=== PATIENT | male | born 1995 | race Caucasian/White ===

== ENCOUNTER 2019-01-08 21:59 | Emergency (ER) | payer OTHER ==
--- NOTE | 2019-01-08 22:13 | ER Document Report ---
ED General - General Chief Complaint: Possible Overdose Stated Complaint: POSSIBLE OVERDOSE Time Seen by Provider: 01/08/19 22:12 TRAVEL OUTSIDE OF THE [place] IN LAST 30 DAYS: No - HPI Notes: Patient is a 23-year-old male who states he has a past medical history significant for bipolar disorder and a "bone marrow cancer" that he was receiving chemotherapy for at [facility]. Patient states that he was "just trying to relax tonight" and took 4 mg of Xanax. Apparently someone in the household became concerned and called EMS. - Related Data Allergies/Adverse Reactions: No Known Allergies Allergy (Verified 08/03/14 14:43) Past Medical History - Social History Smoking Status: Unknown if Ever Smoked Family History: Reviewed & Not Pertinent, CAD, DM, Hyperlipidemia, Hypertension Musculoskeletal Medical History: Reports Hx Musculoskeletal Trauma - left radial and ulnar fracture Psychiatric Medical History: Reports: Hx Anxiety, Hx Attention Deficit Hyperactivity Disorder, Hx Bipolar Disorder Traumatic Medical History: Reports: Hx Fractures - left radial/ulnar with pins Past Surgical History: Reports: Hx Orthopedic Surgery - L arm - Immunizations Immunizations up to date: Yes Hx Diphtheria, Pertussis, Tetanus Vaccination: Yes Physical Exam - Vital signs Vitals: Resp 26 H 01/08/19 22:10 Course - Re-evaluation Re-evalutation: 01/09/19 05:03 Patient currently sleeping. In no acute distress. - Vital Signs Vital signs: Temp Pulse Resp BP Pulse Ox 98.2 F 21 H 100/50 L 96 01/09/19 00:14 01/09/19 03:41 01/09/19 03:41 01/09/19 00:43 Vital signs reviewed by this MD. - Laboratory Result Diagrams: 01/08/19 22:50 01/08/19 22:50 Laboratory results interpreted by me: 01/08/19 01/08/19 22:03 22:50 POC Glucose 119 H Salicylates < 1.0 L Acetaminophen < 10 L 01/09/19 05:03 Laboratory results reviewed by this MD. - EKG Interpretation by Me Additional EKG results interpreted by me: 01/09/19 05:04 EKG performed on 01/08/2019 at 2256 hrs. was interpreted by this MD. Findings: Normal sinus rhythm, rate 74, normal axis, P waves proceed QRS complexes, QRS complexes appear narrow, no acute ST elevation or depression is seen. Impression normal sinus rhythm with no acute findings. Discharge - Discharge Clinical Impression: Intentional overdose of drug in tablet form Condition: Fair Disposition: PSYCH HOSP/UNIT
[2019-01-08 23:03] LABS: ABSOLUTE BASOPHILS # (AUTO) 0.1 10^3/uL (0.0-0.2); ABSOLUTE EOSINOPHILS # (AUTO) 0.1 10^3/uL (0.0-0.6); ABSOLUTE LYMPHOCYTES (AUTO) 2.4 10^3/uL (0.5-4.7); ABSOLUTE MONOCYTES (AUTO) 0.5 10^3/uL (0.1-1.4); ABSOLUTE NEUT (AUTO) 4.3 10^3/uL (1.7-8.2); BASOPHILS % (AUTO) 0.9 % (0-2); EOSINOPHILS % (AUTO) 1.9 % (0-6); HEMOGLOBIN 15.8 g/dL (13.5-17.0); LYMPHOCYTES % (AUTO) 32.8 % (13-45); MEAN CORPUSCULAR HGB CONC 35.1 g/dL (32.0-36.0); MEAN CORPUSCULAR VOLUME 94 fl (80-97); PLATELET COUNT 297 10^3/uL (150-450); RED BLOOD COUNT 4.77 10^6/uL (4.35-5.55); RED CELL DISTRIBUTION WIDTH 11.9 % (11.5-14.0); SEGMENTED NEUTROPHILS % (AUTO) 57.4 % (42-78); TOTAL CELLS COUNTED % (AUTO) 100 %; WHITE BLOOD COUNT 7.4 10^3/uL (4.0-10.5)
[2019-01-08 23:10] LABS: APPEARANCE,URINE CLEAR; BILIRUBIN,URINE NEGATIVE (NEGATIVE); COLOR,URINE STRAW; GLUCOSE, URINE NEGATIVE (NEGATIVE); KETONES,URINE NEGATIVE (NEGATIVE); LEUKOCYTE ESTERASE,URINE NEGATIVE (NEGATIVE); NITRITE,URINE NEGATIVE (NEGATIVE); PROTEIN,URINE NEGATIVE (NEGATIVE); URINE SPECIFIC GRAVITY 1.005; UROBILINOGEN,URINE NEGATIVE mg/dL (<2.0)
--- NOTE | 2019-01-08 23:10 | EKG REPORT ---
SEVERITY:- NORMAL ECG - SINUS RHYTHM : Confirmed by: Rj Martinez MD 08-Jan-2019 23:08:20
[2019-01-08 23:20] LABS: ACETAMINOPHEN < 10 ug/mL (10-30); ALBUMIN 4.2 g/dL (3.5-5.0); ALCOHOL 95 mg/dL (NONE DETECTED); ALKALINE PHOSPHATASE 51 U/L (38-126); ANION GAP 9 (5-19); ASPARTATE AMINO TRANSFERASE 23 U/L (17-59); BILIRUBIN,DIRECT 0.1 mg/dL (0.0-0.4); BILIRUBIN,TOTAL 0.5 mg/dL (0.2-1.3); BLOOD UREA NITROGEN 10 mg/dL (7-20); CALCIUM 9.9 mg/dL (8.4-10.2); CARBON DIOXIDE 28 mmol/L (22-30); CHLORIDE 104 mmol/L (98-107); GLUCOSE 81 mg/dL (75-110); POTASSIUM 3.9 mmol/L (3.6-5.0); SALICYLATE < 1.0 mg/dL (2.0-20.0); TOTAL PROTEIN 6.7 g/dL (6.3-8.2)
[2019-01-08 23:27] LABS: URINE AMPHETAMINES SCREEN NEGATIVE; URINE BARBITURATES SCREEN NEGATIVE; URINE COCAINE SCREEN NEGATIVE; URINE METHADONE SCREEN NEGATIVE; URINE PHENCYCLIDINE SCREEN NEGATIVE
[2019-01-08 23:31] LABS: URINE BENZODIAZEPINES SCREEN UNCONFIRMED POSITIVE; URINE MARIJUANA (THC) SCREEN UNCONFIRMED POSITIVE
[2019-01-08] MEDS ORDERED: NORMAL SALINE 1000 ML 1,000 ML IV ONE (23:45)
--- NOTE | 2019-01-09 00:13 | RADIOLOGY REPORT (SQ) ---
EXAM DESCRIPTION: CT head without contrast CLINICAL HISTORY: 23 years Male, s/p fall, unwitnessed COMPARISON: None. TECHNIQUE: Axial images of the head were performed without the use of intravenous contrast, with sagittal and coronal reformatted images. This exam was performed according to our departmental dose-optimization program which includes use of Automated Exposure Control, adjustment of the mA and/or kV according to patient size and/or use of iterative reconstruction technique. FINDINGS: No skull fracture. No intracranial bleed. No evidence of acute infarct. No evidence of mass or hydrocephalus. IMPRESSION: No skull fracture. No intracranial bleed.
[2019-01-09] MEDS ORDERED: NORMAL SALINE 1000 ML 1,000 ML IV ONE ×2 (00:14→00:48)
--- NOTE | 2019-01-09 00:17 | RADIOLOGY REPORT (SQ) ---
EXAM DESCRIPTION: CT cervical spine without contrast CLINICAL HISTORY: 23 years Male, s/p fall, unwitnessed COMPARISON: None. TECHNIQUE: Axial images of the cervical spine were performed, without the use of intravenous contrast, with sagittal and coronal reformatted images This exam was performed according to our departmental dose-optimization program which includes use of Automated Exposure Control, adjustment of the mA and/or kV according to patient size and/or use of iterative reconstruction technique. FINDINGS: No fracture or dislocation. No evidence of prevertebral swelling. No evidence of spinal stenosis. IMPRESSION: No fracture or dislocation.
[2019-01-09 10:41] VITALS: BP 101/62
--- NOTE | 2019-01-09 11:07 | PSYCHOLOGICAL NOTE ---
Psych Note - Psych Note Date seen by psych provider: 01/09/19 Time seen by psych provider: 09:00 Psych Note: Reason for consult: Altered mental status Patient is a 23-year-old male who states he has a past medical history significant for bipolar disorder and a "bone marrow cancer" that he was receiving chemotherapy for at [facility]. Patient states that he was "just trying to relax tonight" and took 4 mg of Xanax. Apparently someone in the household became concerned and called EMS. Patient reports that he is frustrated that someone in the family called to bring him to [facility]. 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 He he disclosed that he supposed to start at 5 and below today. Patient refuses to provide collateral information as he feels that "everyone has a distorted view." He reports that they had a good weekend and 1 of her children were visiting him however because of his cancer he is very tired. He reports that he has difficulty sleeping though and is prescribed Xanax and normally takes only a third however last night he admits to taking a full tablet. He reports that this was an attempt to get rest and sleep not an attempt to harm himself. He denies misuse of his medications. He reports that he can take up to 2 tablets a day of the Xanax so still did not take his full amount that he is allowed. Patient is alert and orientated to person, place, time and circumstance. Overall patient's mood is euthymic with congruent affect however does become slightly irritable when discussing why he is here and wanting to leave. Patient denies suicidal and homicidal ideation. Delusions are absent behaviors congruent with an intact reality based presentation I organized and linear thought process. Eye contact was well-maintained. Conversational speech is within normal rate, tone and prosody. Intellectual abilities appear to be within the average range. Attention and concentration are currently good. Insight, judgment, impulse control are fair. Bipolar disorder per history provided by patient History of substance abuse No medication recommendations at this time Impression\\plan: Patient is recommended for rescind of IVC and is cleared from acute psychiatric services. Patient does not meet IVC criteria per ID GS 122C. Patient denies thoughts of wanting to harm himself or others. Patient does have a history of substance abuse however denies current misuse of his medications. Patient reports he has been sober for almost 4 years and states that on April 19, 2019 is the 4-year anniversary. Patient reports that he took a full tablet of his Xanax which is approximately 4 mg. Patient was also drinking alcohol with an EtOH of 95 upon arrival to [facility]. Patient was highly encouraged to not mix alcohol and his medications. Dr. Bach was consulted and the care management of this patient; attending physicians in agreement with recommendations and disposition.
--- NOTE | 2019-01-09 11:17 | ER Document Report ---
Doctor's Note Notes: 01/09/19 11:16 Evaluated patient. Patient without any complaints regular rate and rhythm. Lungs clear to auscultation bilaterally. Regular rate and rhythm. Per psychiatric recommendations patient is safe for discharge. Patient provided with outpatient resources.
== END 2019-01-09 11:39 | disposition home or self-care (01) ==
LOC: ER 21:59
DX: T42.4X1A Poisoning by benzodiazepines, accidental (unintentional), initial encounter (principal); F31.9 Bipolar disorder, unspecified; C96.9 Malignant neoplasm of lymphoid, hematopoietic and related tissue, unspecified
CPT/HCPCS: 93005; 99285; 96360; 36415; 82962; 80307 ×4; 85025; 80053; 81001; 70450; 72125; 93010; J7030 ×2